=== PATIENT | female | born 1955 | race Caucasian/White ===

== ENCOUNTER → 2016-09-09 16:55 | Outpatient (CLI) | payer MEDICARE ==
[2013-01-25 14:49] VITALS: BMI 33.4
[~2016-09-09 16:55] MED LIST: AMBIEN10 MG PO; ASPIRIN 81 MG E81 MG PO; BACTRIM DS TABL1 TAB PO; BAYER CHEWABLE81 MG PO; CELEBREX200 MG PO; COZAAR50 MG PO; CRESTOR40 MG PO; DHEA25 M1 PO; ECOTRIN325 MG PO; ESTRACE1 MG PO; FLAGYL500 MG PO; HYDROCHLOROTH12.5 M1 PO; LEVEMIR100 U/M1 SQ; METRONIDAZOLE; MYCOSTATIN CREA15 GM TP; NORCO 10/325 TA1 TA1 PO; PLAVIX75 MG PO; PREDNISOLONE; PREDNISONE10 MG PO; PROMETRIUM100 MG PO; SYNTHROID100 MCG PO; TYLENOL 325 MG325 MG PO; VICTOZA0.6 MG/0.1 SQ; ZOFRAN ODT4 MG/UDTAB PO
== END | disposition home or self-care (01) ==
LOC: D.MAMMO 08-14 15:00
DX: Z12.31 Encounter for screening mammogram for malignant neoplasm of breast (principal)

== ENCOUNTER → 2016-11-12 17:03 | Outpatient (CLI) | payer MEDICARE ==
[2013-01-25 14:49] VITALS: BMI 33.4
== END | disposition home or self-care (01) ==
LOC: D.MAMMO 10-16 10:30
DX: R92.8 Other abnormal and inconclusive findings on diagnostic imaging of breast (principal)

== ENCOUNTER → 2017-08-05 06:54 | Outpatient (CLI) | payer MEDICARE ==
[2013-01-25 14:49] VITALS: BMI 33.4
== END | disposition home or self-care (01) ==
LOC: D.US 06:54
DX: R92.8 Other abnormal and inconclusive findings on diagnostic imaging of breast (principal)

== ENCOUNTER 2018-09-18 19:00 | Outpatient (CLI) | payer MEDICARE, MEDICAID ==
[2013-01-25 14:49] VITALS: BMI 33.4
== END 2018-09-18 23:59 | disposition home or self-care (01) ==
LOC: D.MAMMO 19:00
PROVIDERS: ATTEND Family Medicine
DX: Z12.31 Encounter for screening mammogram for malignant neoplasm of breast (principal)

== ENCOUNTER → 2019-12-08 22:00 | Outpatient (CLI) | payer MEDICARE, MEDICAID ==
[2013-01-25 14:49] VITALS: BMI 33.4
== END | disposition home or self-care (01) ==
LOC: D.MAMMO 09:45
PROVIDERS: ATTEND Family Medicine
DX: Z12.31 Encounter for screening mammogram for malignant neoplasm of breast (principal)

== ENCOUNTER 2020-11-20 09:56 | Observation (INO) | payer MEDICARE, MEDICAID ==
[2020-11-17 12:52] LABS: BASOPHILS 0.8 % (0-2); EOSINOPHILS 4.1 % (0-7); HEMATOCRIT 44.1 % (36.0-48.0); HEMOGLOBIN 14.3 g/dL (12-16); LYMPHOCYTES 17.8 % (15-50); MCH 30.8 pg (26.0-34.0); MCHC 32.5 g/dL (31.0-37.0); MCV 94.8 fL (80.0-100.0); MEAN PLATELET VOLUME 7.7 fL (7.4-10.4); MONOCYTES 7.3 % (2-11); RBC 4.65 10x6/uL (4.00-5.40); WBC 9.3 10x3/uL (4.8-10.8)
[2020-11-17 12:58] LABS: PLATELET COUNT 371 10x3/uL (130-400)
[2020-11-17 13:00] LABS: ANION GAP 10.2 mmol/L (8-16); CALCIUM 9.9 mg/dL (8.5-10.1); CREATININE - SERUM 1.1 mg/dL (0.6-1.3); POTASSIUM - SERUM 4.2 mmol/L (3.5-5.1)
[2020-11-17 13:03] LABS: BILIRUBIN NEGATIVE (NEGATIVE); KETONE NEGATIVE (NEGATIVE); NITRITE NEGATIVE (NEGATIVE); UROBILINOGEN NORMAL mg/dL (< 2)
[2020-11-17 13:04] LABS: APTT 28.1 SECONDS (22.8-39.4); BACTERIA RARE HPF (NONE SEEN); INR 1.01 (0.85-1.17); PROTIME 12.3 SECONDS (11.6-15.0); SQUAMOUS EPITHELIAL 0-5 HPF (0-4); WHITE CELLS - URINE 0-5 HPF (0-4)
[2020-11-20] VITALS (9 sets, daily range): BP systolic 113–148; BP diastolic 53–71; BMI 30.7; BMI 31.5
[~2020-11-20] VITALS: Ht 167.6 cm; Wt 88.5 kg
[~2020-11-20 09:56] MED LIST changes: +CLARITIN 10 MG10 MG PO; +CRESTOR5 MG PO; +CYMBALTA20 MG PO; +DONEPEZIL HCL5 MG PO; +GABAPENTIN100 MG PO; +HYDROCODONE-AC1 EAC2 PO; +LEVEMIR FL100 UNIT/1 SC; +LEVO-T100 MCG PO; +LISINOPRIL10 MG PO; +NORVASC10 MG PO; +ZANAFLEX4 MG PO; +ZYLOPRIM300 MG PO
--- NOTE | 2020-11-20 16:53 | NUR ---
HEMOVAC DRAIN. CDI. IN PLACE.
--- NOTE | 2020-11-20 19:07 | NUR ---
PATIENT RESTING IN BED WITH EYES CLOSED AND NO S/S OF DISTRESS. CPM TO LEFT KNEE. IV INFUSING TO RIGHT FA, NO SWELLING, REDNESS, OR PAIN NOTED. BED IN LOWEST POSITION AND CALL LIGHT IN REACH.
--- NOTE | 2020-11-20 21:50 | NUR ---
ADMINISTERED MEDS PER ORDERS. PATIENT MADELINE WELL. ENCOURAGED TO CALL WITH NEEDS.
[2020-11-21] VITALS (7 sets, daily range): BP systolic 91–145; BP diastolic 31–79; Ht 167.6 cm; Wt 88.5 kg
[2020-11-21 06:05] LABS: BASOPHILS 0.3 % (0-2); EOSINOPHILS 0 % (0-7); HEMATOCRIT 36.4 % (36.0-48.0); HEMOGLOBIN 11.9 g/dL (12-16); LYMPHOCYTES 5.7 % (15-50); MCH 31.2 pg (26.0-34.0); MCHC 32.7 g/dL (31.0-37.0); MCV 95.4 fL (80.0-100.0); MEAN PLATELET VOLUME 8.2 fL (7.4-10.4); MONOCYTES 5.3 % (2-11); NEUTROPHILS 88.7 % (40-80); RBC 3.81 10x6/uL (4.00-5.40); RDW 16.6 % (11.5-14.5); WBC 9.7 10x3/uL (4.8-10.8)
[2020-11-21 06:23] LABS: PLATELET COUNT 263 10x3/uL (130-400)
[2020-11-21 06:35] LABS: ALBUMIN 2.8 g/dL (3.4-5.0); ANION GAP 13.5 mmol/L (8-16); BILIRUBIN - TOTAL 0.28 mg/dL (0.2-1.3); CALCIUM 8.1 mg/dL (8.5-10.1); CARBON DIOXIDE 23.8 mmol/L (21.0-32.0); CREATININE - SERUM 1.1 mg/dL (0.6-1.3); MAGNESIUM - SERUM 1.8 mg/dL (1.8-2.4); PHOSPHOROUS 3.2 mg/dL (2.5-4.9); POTASSIUM - SERUM 5.3 mmol/L (3.5-5.1); PROTEIN - SERUM 6.1 g/dL (6.4-8.2)
--- NOTE | 2020-11-21 07:42 | NUR ---
PT AWAKE ALERT AND SITTING UP IN BED WATCHING TV. CPM/KENNEDY/SCD'S ON. PROVIDED WITH COFFEE. BED ALARM ON. CL IN REACH. NO FURTHER NEEDS AT THIS TIME. WCTM
--- NOTE | 2020-11-21 14:19 | NUR ---
PT LAYING ON BACK IN BED. CL IN REACH. STATES SHE IS FINE. READY TO TAKE A NAP. BED ALARM ON. WCTM
--- NOTE | 2020-11-21 16:40 | MORECARE ---
CASE MANAGEMENT DISCHARGE SUMMARY PATIENT: JASON SARABIA UNIT: [id number] ADM DATE: 11/20/20 AGE: 65 : 53 SEX: F ROOM/BED: D.1211 AUTHOR: SEPIDEH,DOC PHYSICIAN: REFERRING PHYSICIAN: BLAINE VEGA MD DATE OF SERVICE: 11/21/20 Case Management Discharge Planning Summary COMMENTS ENTERED DATE: 11/21/20 16:37 CT COMMENT TYPE: Discharge Planning REVIEWER: Yamil Mann CM met with patient to complete DC plan and to evaluate needs. Patient lives independently with her son, David Sarabia, . Patient stated that her home is safe and has electricity and running water. Patient stated that she has no problems paying for medications and she fills her medications at [facility] on [facility]. Patient stated that her primary care physician is Dr. Burden. At discharge, the patient plans to return home and feels this is a safe discharge. CM discussed availability of home health, rehab services, and medical equipment. Patient declined SNF and IPR but would like a walker through [facility] and Home Health PT through [employer] [facility]. INDIO for [place] signed and placed in chart. CM [facility] Amparo requested that clinical documents be faxed to [phone] Patient stated that she has a BSC, Shower Bench, and Canes at home. Patient voiced no other needs at this time and is satisfied with DC plan. Transportation provider at discharge will be with her son Marty. DAVID delivered, explained, signed by the patient, and placed in chart. Copy of form also left with the patient. CM will continue to follow and will assist as needed with dc plans/needs. DCP REVIEW SUMMARY ANTICIPATED D/C DATE: EXPECTED LOS : CASE STATUS: DCP Initiated INITIAL REVIEW: 11/20/2020 INITIAL REVIEWER: Yamil Mann FINAL DISCHARGE DISPOSITION: : FINAL REVIEWER: FINAL REVIEW DATE: DCP Focus Questions & Answers DCP Evaluation QUESTION: ANSWER Patient and/or caregiver agree upon recommended discharge plan? : Yes Family / Caregiver's ability to cope with chronic illness: : a. Adequate (ability to meet patient's medical needs, ensures patient attends medical appts.) Patient's current cognitive status: : *Oriented to person, place, situation, time and present Patient's ability to cope with chronic illness : d. No chronic illness Patient gives permission to discuss discharge plans with: (name, relationship and number) : son, David Sarabia, Does the patient have the ability to pay for or attain post discharge needs / services? : Yes Functional screen assessment: : Basic needs can adequately be met by self Family / Caregiver's ability to cope with chronic illness: : a. Adequate (ability to meet patient's medical needs, ensures patient attends medical appts.) Physical Status: : Independent with ADL's Equipment needed for post hospitalization: : Walker - Rolling Is there a likelihood that the patient will require additional services to return to the preadmission environment? : Yes Living Arrangements: : Home with Extended Family Patient with capacity for self-care or can be cared for in same environment as prior to hospitalization? : Yes Baseline cognitive status: : *Oriented to person, place, situation, time and present Physical environment modification needed / anticipated for discharge: : No Medication Management: : Patient states can read and understand medication labels Medication Management: : Patient states can afford medications [facility] Does Patient have transportation to get home and to follow-up medical appointments when discharged from the hospital? : Yes Would patient like to participate in any Care Coordination programs (if applicable): : Not applicable Does the patient have electricity at home? : Yes Does the patient have running water in their house? : Yes Equipment in use: : Shower Chair Equipment in use: : Cane - Single Leg Equipment in use: : Bedside Commode Mental health screen: : No mental health history DCP Re-evaluation QUESTION: ANSWER Would patient like to participate in any Care Coordination programs (if applicable): : Not applicable PATIENT: JASON SARABIA ENCOUNTER: [id number] MEDICAL RECORD#: [id number] ADMISSION DATE: 11/20/2020 DISCHARGE DATE: ATTENDING MD: SHANE: AGE: 65 MARITAL STATUS: D DC PLAN ID: [id number] FACILITY: [facility] PRINTED ON: 11/21/20 16:40 CT All edits/amendments must be made on the electronic document DICTATION DATE: 11/21/20 1640 STEAM HAND: ALBER 11/21/20 1640 RPT#: [id number] DC DATE: STATUS: ADM IN [facility] [address] [place] [address] END OF REPORT
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
--- NOTE | 2020-11-21 20:00 | NUR ---
ALERT RESTING IN BED CPM IN USE, DENIES WALDO OR NEEDS AT THIS TIME, IV FLUIDS RESTARTED AT 100CC ORDERED DUE TO LOW BP, WILL MONITOR BP, SEE SHIFT ASSESSMENT, CALL LIGHT IN REACH
[2020-11-22 00:30] VITALS: BP 110/43
--- NOTE | 2020-11-22 01:04 | NUR ---
MEDICATED FOR PAIN WITH 5MG HYDROCODONE 1/2 10 MG TAB THAT IS ORDERED FOR C/O PAIN 01/06 TO LEFT KNEE, LOWER DOSE GIVEN DUE TO CONTINUED LOW BP 110/43 AT THIS TIME
[2020-11-22 05:09] VITALS: BP 134/49
[2020-11-22 07:19] VITALS: BP 130/34
--- NOTE | 2020-11-22 07:30 | NUR ---
AWAKE AND ALERT. ORIENTED X3. NO C/O AT THIS TIME. ON CPM. LUNGS ARE CLEAR BILATERALLY, NO COUGH NOTED. SKIN IS INTACT WITHOUT REDNESS EXCEPT INCISION TO LEFT KNEE WHICH HAS A DRY INTACT DRESSING IN PLACE. IV TO RIGHT FOREARM IS PATENT WITHOUT REDNESS AT INSERTION SITE. UP TO BR WITH ONE PERSON MIN ASSIST AND RW. VOIDED CLEAR YELLOW URINE WITHOUT DIFFICULTY. TOREY CARE PER SELF. USED IS INSTRUCTED. BREAKFAST SERVED IN ROOM.
--- NOTE | 2020-11-22 08:45 | NUR ---
OFF CPM AT THIS TIME. ATE MOST OF BREAKFAST. TOOK AM MEDS WITHOUT DIFFICULTY. LANTUS HELD AT THIS TIME R/T LOW BS. WILL MONITOR.
[2020-11-22 08:57] LABS: BASOPHILS 0.7 % (0-2); HEMATOCRIT 35.7 % (36.0-48.0); HEMOGLOBIN 11.6 g/dL (12-16); LYMPHOCYTES 20.1 % (15-50); MCH 31.8 pg (26.0-34.0); MCHC 32.6 g/dL (31.0-37.0); MCV 97.4 fL (80.0-100.0); MEAN PLATELET VOLUME 9.4 fL (7.4-10.4); NEUTROPHILS 68.2 % (40-80); PLATELET COUNT 155 10x3/uL (130-400); RBC 3.66 10x6/uL (4.00-5.40); RDW 16.7 % (11.5-14.5); WBC 9.9 10x3/uL (4.8-10.8)
[2020-11-22 09:17] LABS: ALBUMIN 2.9 g/dL (3.4-5.0); BILIRUBIN - TOTAL 0.2 mg/dL (0.2-1.3); CALCIUM 8.2 mg/dL (8.5-10.1); CARBON DIOXIDE 23.2 mmol/L (21.0-32.0); CREATININE - SERUM 1.1 mg/dL (0.6-1.3); MAGNESIUM - SERUM 1.8 mg/dL (1.8-2.4); PHOSPHOROUS 2.7 mg/dL (2.5-4.9); PROTEIN - SERUM 5.7 g/dL (6.4-8.2)
--- NOTE | 2020-11-22 09:20 | NUR ---
REQUESTED AND GIVEN ONE 1OMG HYDROCODONE PO FOR C/O LEFT KNEE PAIN LEVEL 8. WILL MONITOR. ALSO ASKED FOR MIRALAX TO HELP WITH BM. ORDERED FOR HER.
[2020-11-22 09:23] LABS: ANION GAP 14.2 mmol/L (8-16); POTASSIUM - SERUM 4.4 mmol/L (3.5-5.1)
--- NOTE | 2020-11-22 10:38 | NUR ---
UP TO BR WITH SBA. VOIDED WITHOUT DIFFICULTY. TOREY CARE PER SELF.
[2020-11-22 11:30] VITALS: BP 92/33
[2020-11-22] MEDS ORDERED: ELIQUIS2.5 MG PO (14:42)
[2020-11-22] MEDS ORDERED: HYDROCODON-ACE1 EA10 PO (14:44)
--- NOTE | 2020-11-22 14:44 | MORECARE ---
CASE MANAGEMENT DISCHARGE SUMMARY PATIENT: JASON SARABIA UNIT: [id number] ADM DATE: 11/20/20 AGE: 65 : 53 SEX: F ROOM/BED: D.1211 AUTHOR: SEPIDEH,DOC PHYSICIAN: REFERRING PHYSICIAN: BLAINE VEGA MD DATE OF SERVICE: 11/22/20 Case Management Discharge Planning Summary COMMENTS ENTERED DATE: 11/22/20 14:38 CT COMMENT TYPE: Discharge Planning REVIEWER: Colleen Gates [employer] IS DELIVERING WALKER TO PATIENT ROOM TODAY.; ENTERED DATE: 11/21/20 16:37 CT COMMENT TYPE: Discharge Planning REVIEWER: Yamil Mann CM met with patient to complete DC plan and to evaluate needs. Patient lives independently with her son, David Sarabia, . Patient stated that her home is safe and has electricity and running water. Patient stated that she has no problems paying for medications and she fills her medications at [facility] on [facility]. Patient stated that her primary care physician is Dr. Burden. At discharge, the patient plans to return home and feels this is a safe discharge. CM discussed availability of home health, rehab services, and medical equipment. Patient declined SNF and IPR but would like a walker through [employer] and Home Health PT through [facility]. INDIO for [place] signed and placed in chart. CM spoke with Amparo with [facility]. Amparo requested that clinical documents be faxed to [phone] Patient stated that she has a BSC, Shower Bench, and Canes at home. Patient voiced no other needs at this time and is satisfied with DC plan. Transportation provider at discharge will be with her son Marty. DAVID delivered, explained, signed by the patient, and placed in chart. Copy of form also left with the patient. CM will continue to follow and will assist as needed with dc plans/needs. DCP REVIEW SUMMARY ANTICIPATED D/C DATE: EXPECTED LOS : CASE STATUS: DCP Initiated INITIAL REVIEW: 11/20/2020 INITIAL REVIEWER: Yamil Mann FINAL DISCHARGE DISPOSITION: : FINAL REVIEWER: FINAL REVIEW DATE: DCP Focus Questions & Answers DCP Evaluation QUESTION: ANSWER Patient gives permission to discuss discharge plans with: (name, relationship and number) : sonDavid, Patient's ability to cope with chronic illness : d. No chronic illness Patient's current cognitive status: : *Oriented to person, place, situation, time and present Family / Caregiver's ability to cope with chronic illness: : a. Adequate (ability to meet patient's medical needs, ensures patient attends medical appts.) Patient and/or caregiver agree upon recommended discharge plan? : Yes Physical Status: : Independent with ADL's Family / Caregiver's ability to cope with chronic illness: : a. Adequate (ability to meet patient's medical needs, ensures patient attends medical appts.) Functional screen assessment: : Basic needs can adequately be met by self Does the patient have the ability to pay for or attain post discharge needs / services? : Yes Living Arrangements: : Home with Extended Family Is there a likelihood that the patient will require additional services to return to the preadmission environment? : Yes Equipment needed for post hospitalization: : Walker - Rolling Baseline cognitive status: : *Oriented to person, place, situation, time and present Patient with capacity for self-care or can be cared for in same environment as prior to hospitalization? : Yes Physical environment modification needed / anticipated for discharge: : No Medication Management: : Patient states can afford medications Medication Management: : Patient states can read and understand medication labels [facility] Does Patient have transportation to get home and to follow-up medical appointments when discharged from the hospital? : Yes Would patient like to participate in any Care Coordination programs (if applicable): : Not applicable Does the patient have electricity at home? : Yes Does the patient have running water in their house? : Yes Equipment in use: : Bedside Commode Equipment in use: : Cane - Single Leg Equipment in use: : Shower Chair Mental health screen: : No mental health history DCP Re-evaluation QUESTION: ANSWER Would patient like to participate in any Care Coordination programs (if applicable): : Not applicable PATIENT: JASON SARABIA ENCOUNTER: [id number] MEDICAL RECORD#: [id number] ADMISSION DATE: 11/20/2020 DISCHARGE DATE: ATTENDING MD: : AGE: 65 MARITAL STATUS: D DC PLAN ID: [id number] FACILITY: [facility] PRINTED ON: 11/22/20 14:44 CT All edits/amendments must be made on the electronic document DICTATION DATE: 11/22/201442 OPHTHALMIC TECHNICIAN: ALBER 11/22/201442 RPT#: [id number] DC DATE: STATUS: ADM IN [facility] [address] [place] [address] END OF REPORT
--- NOTE | 2020-11-22 15:45 | NUR ---
REQUESTED AND GIVEN ONE 10MG HYDROCODONE PO FOR C/O LEFT KNEE PAIN LEVEL 8. WILL MONITOR.
--- NOTE | 2020-11-22 16:16 | NUR ---
DISCHARGED TO HOME WITH SON AMBULATORY. DISCHARGE INSTRUCTIONS GIVEN BOTH VERBALLY AND WRITTEN. ALL QUESTIONS ANSWERED. PATIENT AND SON VERBALIZED UNDERSTANDING OF SAME. SL TO RIGHT FOREARM D/C WITH CATHETER INTACT. ALL BELONGINGS WITH PATIENT.
--- NOTE | 2020-11-22 16:32 | MORECARE ---
CASE MANAGEMENT DISCHARGE SUMMARY PATIENT: JASON SARABIA UNIT: [id number] ADM DATE: 11/20/20 AGE: 65 : 53 SEX: F ROOM/BED: D.1211 AUTHOR: SEPIDEH,DOC PHYSICIAN: REFERRING PHYSICIAN: BLAINE VEGA MD DATE OF SERVICE: 11/22/20 Case Management Discharge Planning Summary COMMENTS ENTERED DATE: 11/22/20 14:38 CT COMMENT TYPE: Discharge Planning REVIEWER: Colleen Gates [employer] IS DELIVERING WALKER TO PATIENT ROOM TODAY.; ENTERED DATE: 11/21/20 16:37 CT COMMENT TYPE: Discharge Planning REVIEWER: Yamil Mann CM met with patient to complete DC plan and to evaluate needs. Patient lives independently with her son, David Sarabia, . Patient stated that her home is safe and has electricity and running water. Patient stated that she has no problems paying for medications and she fills her medications at [facility] on [facility]. Patient stated that her primary care physician is Dr. Burden. At discharge, the patient plans to return home and feels this is a safe discharge. CM discussed availability of home health, rehab services, and medical equipment. Patient declined SNF and IPR but would like a walker through [employer] and Home Health PT through [facility]. INDIO for [place] signed and placed in chart. CM spoke with Amparo with [facility]. Amparo requested that clinical documents be faxed to [phone] Patient stated that she has a BSC, Shower Bench, and Canes at home. Patient voiced no other needs at this time and is satisfied with DC plan. Transportation provider at discharge will be with her son Marty. DAVID delivered, explained, signed by the patient, and placed in chart. Copy of form also left with the patient. CM will continue to follow and will assist as needed with dc plans/needs. DCP REVIEW SUMMARY ANTICIPATED D/C DATE: EXPECTED LOS : CASE STATUS: DCP Initiated INITIAL REVIEW: 11/20/2020 INITIAL REVIEWER: Yamil Mann FINAL DISCHARGE DISPOSITION: : FINAL REVIEWER: FINAL REVIEW DATE: DCP Focus Questions & Answers DCP Evaluation QUESTION: ANSWER Patient gives permission to discuss discharge plans with: (name, relationship and number) : sonDavid, Patient's ability to cope with chronic illness : d. No chronic illness Patient's current cognitive status: : *Oriented to person, place, situation, time and present Family / Caregiver's ability to cope with chronic illness: : a. Adequate (ability to meet patient's medical needs, ensures patient attends medical appts.) Patient and/or caregiver agree upon recommended discharge plan? : Yes Physical Status: : Independent with ADL's Family / Caregiver's ability to cope with chronic illness: : a. Adequate (ability to meet patient's medical needs, ensures patient attends medical appts.) Functional screen assessment: : Basic needs can adequately be met by self Does the patient have the ability to pay for or attain post discharge needs / services? : Yes Living Arrangements: : Home with Extended Family Is there a likelihood that the patient will require additional services to return to the preadmission environment? : Yes Equipment needed for post hospitalization: : Walker - Rolling Baseline cognitive status: : *Oriented to person, place, situation, time and present Patient with capacity for self-care or can be cared for in same environment as prior to hospitalization? : Yes Physical environment modification needed / anticipated for discharge: : No Medication Management: : Patient states can afford medications Medication Management: : Patient states can read and understand medication labels [facility] Does Patient have transportation to get home and to follow-up medical appointments when discharged from the hospital? : Yes Would patient like to participate in any Care Coordination programs (if applicable): : Not applicable Does the patient have electricity at home? : Yes Does the patient have running water in their house? : Yes Equipment in use: : Bedside Commode Equipment in use: : Cane - Single Leg Equipment in use: : Shower Chair Mental health screen: : No mental health history DCP Re-evaluation QUESTION: ANSWER Would patient like to participate in any Care Coordination programs (if applicable): : Not applicable PATIENT: JASON SARABIA ENCOUNTER: [id number] MEDICAL RECORD#: [id number] ADMISSION DATE: 11/20/2020 DISCHARGE DATE: 11/22/2020 ATTENDING MD: SHANE: AGE: 65 MARITAL STATUS: D DC PLAN ID: [id number] FACILITY: [facility] PRINTED ON: 11/22/20 16:32 CT All edits/amendments must be made on the electronic document DICTATION DATE: 11/22/201631 GLOVE WRAPPER: ALBER 11/22/20 163 RPT#: [id number] DC DATE:11/22/20 STATUS: DIS IN [facility] [address] [place] [address] END OF REPORT
--- NOTE | 2020-11-23 12:45 | OP ---
PATIENT NAME: JASON MILLS MEDICAL RECORD: [id number] :51 LOCATION:D. D.1211 ADMISSION DATE:11/20/20 SURGEON: BLAINE VEGA MD DATE OF OPERATION: 11/20/2020 PREOPERATIVE DIAGNOSIS: Osteoarthritis, left knee. POSTOPERATIVE DIAGNOSIS: Osteoarthritis, left knee. PROCEDURE PERFORMED: Left total knee arthroplasty. INDICATIONS FOR THE PROCEDURE: Ms. Mills is a 65-year-old female with history of left knee pain and arthritis. She has been dealing with this for some time now and it is beginning to affect her mobility. She has elected to proceed with surgery for left total knee arthroplasty. Risks, benefits and alternatives of surgery were discussed with the patient and consent was obtained. DESCRIPTION OF THE PROCEDURE: The patient was met in the holding area where her identity and confirmation of procedure was performed. Left lower extremity was marked. She was taken to the operating room where she was placed supine on the operating table, and anesthesia was administered. Tourniquet was applied to the left thigh and the left leg was prepped and draped in the usual sterile fashion. The patient received preoperative antibiotics as well as TXA and a timeout was performed before initiating the case. On initiation of the case, the leg was exsanguinated and tourniquet was raised. Total tourniquet time was approximately 110 minutes. A medial parapatellar approach was utilized for exposure. The knee was placed into flexion. An incision was made over the anterior knee, dissected down to the extensor mechanism. The quad tendon was then split along its medial border curving medially around the patella and extending down the medial border of the patellar tendon. Knee was then taken into extension. Tissue from the posterior fat pad of the patella and over the anterior distal femur was excised. A flap tissue off the medial tibial plateau was elevated and a portion of the medial meniscus was excised. Patella was then everted. Knee was placed back into flexion. Retractors were placed medial and lateral. Cruciate ligaments were excised and [place]'s line was marked. Our femoral tunnel was then drilled for intramedullary femoral guide. The distal femoral cutting block was then pinned into position and our distal femur cut was completed. The femur was then sized to a size 5. The 4-in-1 cutting block was pinned into place and our anterior, posterior and chamfer cuts were completed. We then turned our attention to the tibia. Our PCL retractor was placed. The remainder of the medial and lateral menisci were excised. The extramedullary tibial guide was placed and adjusted for alignment taking 4 mm off the medial tibial plateau. The cutting block was then pinned into position and our tibial cut was completed. The bony piece was removed and osteophytes were also removed from around the medial tibial plateau. The tibia was sized to a size T2. The tibial trial was placed and prepared using a reamer and punch. The knee was then trialed with a size 10 poly, felt to have good fit and stability throughout range of motion. We then completed with preparing our femur for a box cut for posterior stabilized component. The femoral component was positioned over the distal femur and pinned into place. A box cut was then completed using a reciprocating saw and osteotome. The knee was then taken into extension and turned our attention to the patella. Towel clips were placed in the superior and inferior poles. A caliper was used to assess the width through the patella. It was then cut to the floor of the lateral facet. It was sized to a size 3 OPERATIVE REPORT [id number] JASON MILLS and drilled. The knee was repositioned in flexion and the trial components were removed. Osteophytes were removed from the posterior aspect of the distal femur. We then placed the knee into extension and irrigated thoroughly with saline. Joint solution was then injected around the capsule of the proximal tibia and the distal femur. Bony ends were then dried and our final components were cemented into place. Excess cement was removed throughout this process. The trial poly was placed and the knee was held in full extension while the cement was allowed to dry. Patella was held with a patellar clamp. Once the cement was allowed to dry. Knee was again taken through range of motion and felt to have good fit and stability with the size 10 poly and our final size 10 posterior stabilized poly was placed and tapped into position. This was secured with the screw. It was again taken through range of motion, had good fit and stability. Knee was irrigated thoroughly with saline. A drain was placed in the lateral gutter. The extensor mechanism was closed with #1 Vicryl suture. The subcutaneous tissues were irrigated thoroughly with saline and then closed with 2-0 Vicryl. The skin was closed with phill. Sterile dressing was placed. The patient was turned back over to anesthesia where she was awakened, extubated, and taken to recovery room in stable condition. POSTOPERATIVE PLAN: The patient is going to be admitted for routine postoperative care. She will receive 24 hours of postoperative antibiotics, will be started on DVT prophylaxis tomorrow. Physical therapy will be consulted to assist with mobility. Weightbearing as tolerated, left lower extremity. PLAN: Home with home health. COMPLICATIONS: None. ESTIMATED BLOOD LOSS: 50 mL. ANESTHESIA: General with peripheral nerve block. TRANSINT:[id number] Voice Confirmation ID: [id number] DOCUMENT ID: [id number] BLAINE VEGA MD at 1245 CC: [id number] DICTATION DATE: 11/20/20 165 PLASTICS REPAIRER: 11/22/20 0105 DIS IN 11/22/20 [place] [id number] [place] [address]
== END 2020-11-22 16:18 | disposition home or self-care (01) ==
LOC: D.OPS 09:56 → D.M3 17:16 → OBSVTIME 17:16 → D.M3 11-22 16:18
PROVIDERS: Emergency Medicine; ADMIT Orthopaedic Surgery; ATTEND Orthopaedic Surgery
DX: M17.12 Unilateral primary osteoarthritis, left knee (principal); F03.90 Unspecified dementia, unspecified severity, without behavioral disturbance, psychotic disturbance, mood disturbance, and anxiety; E11.40 Type 2 diabetes mellitus with diabetic neuropathy, unspecified; I10 Essential (primary) hypertension; E78.5 Hyperlipidemia, unspecified; E03.9 Hypothyroidism, unspecified; F32.9 Major depressive disorder, single episode, unspecified; G47.33 Obstructive sleep apnea (adult) (pediatric); Z79.4 Long term (current) use of insulin